=== PATIENT | female | born 1975 | race Two or more races ===

== ENCOUNTER 2018-05-04 20:35 | Emergency (ER) | payer OTHER ==
[2018-05-04] MEDS ORDERED: NS 0.9% 1000 ML* 1,000 ML IV ONE (21:11)
[2018-05-04] MEDS ORDERED: Aspirin 81 mg CHEW TAB* 81 MG TAB.CHEW PO ONE (21:21)
[2018-05-04 21:26] LABS: ABS Basophils 0.1 10^3/ul (0-0.2); ABS Eosinophils 0.1 10^3/ul (0-0.6); ABS Monocytes 0.7 10^3/ul (0-0.8); ABS Neutrophils 7.9 10^3/ul (1.5-7.7); ABS Nucleated RBC 0 10^3/ul; Eosinophil % 0.8 % (0-6); Hematocrit 42 % (35-47); Hemoglobin 14.6 g/dl (12.0-16.0); Lymphocyte % 18.9 % (25-47); Mean Corpuscular HGB Conc 35 g/dl (31-36); Mean Corpuscular Hemoglobin 32 pg (27-31); Mean Corpuscular Volume 92 fL (80-97); Mean Platelet Volume 8.1 um3 (7.4-10.4); Nucleated Red Blood Cells % 0; Platelet Count 243 10^3/ul (150-450); Red Blood Count 4.52 10^6/ul (4.00-5.40); Red Cell Distribution Width 12 % (10.5-15); White Blood Count 10.7 10^3/ul (3.5-10.8)
--- NOTE | 2018-05-04 21:30 | ED ---
Syncope/Near Syncope - HPI Summary HPI Summary: Pt is 43 y/o F [facility] sync[facility]. Pt was alone at home during syncopal episode and states that she felt heavy in her breathing and a little chest pain before it happened. She woke up on the floor and is not sure how much time she lost. When she regained consciousness she called 911 and had spasms in her legs. These spasms were consistent with spasms she experienced the one other time in her life that she fainted, which was 20 years ago. Pt has also felt tightness in her legs for several days, and it is still present now. During the day, before her syncopal episode, pt says she felt normal. She notes that now, she feels very fatigued. Denies fever, cough, or loss of urine. She is on no medications. - History Of Current Complaint Chief Complaint: EDChestPainROMI Time Seen by Provider: 05/04/18 20:49 Hx Obtained From: Patient Onset/Duration: Sudden Onset Context: Unwitnessed, Loss Of Consciousness Aggravating Factor(s): Nothing Associated Signs And Symptoms: Chest Pain, Weakness, Other - heavy breathing, leg spasms - Allergies/Home Medications Allergies/Adverse Reactions: Allergies Allergy/AdvReac Type Severity Reaction Status Date / Time No Known Allergies Allergy Verified 05/04/18 20:46 Home Medications: Home Medications NK [No Home Medications Reported] 05/04/18 [History Confirmed 05/04/18] PMH/Surg Hx/FS Hx/Imm Hx Infectious Disease History: No Infectious Disease History: Denies: Traveled Outside the [place] in Last 30 Days Review of Systems Positive: Fatigue. Negative: Fever Positive: Other - heavy breathing. Negative: Cough Positive: Other - loss of urine during episode Positive: Other - leg spasms Positive: Syncope All Other Systems Reviewed And Are Negative: Yes Physical Exam - Summary Physical Exam Summary: VITAL SIGNS: Reviewed. GENERAL: Patient is a well-developed and nourished female who is lying comfortable in the stretcher. Patient is not in any acute respiratory distress. HEAD AND FACE: No signs of trauma. No ecchymosis, hematomas or skull depressions. No sinus tenderness. EYES: PERRLA, EOMI x 2, No injected conjunctiva, no nystagmus. EARS: Hearing grossly intact. Ear canals and tympanic membranes are within normal limits. MOUTH: Oropharynx within normal limits. NECK: Supple, trachea is midline, no adenopathy, no JVD, no carotid bruit, no c- spine tenderness, neck with full ROM. CHEST: Symmetric, no tenderness at palpation LUNGS: Clear to auscultation bilaterally. No wheezing or crackles. CVS: Regular rate and rhythm, S1 and S2 present, no murmurs or gallops appreciated ABDOMEN: Soft, non-tender. No signs of distention. No rebound no guarding, and no masses palpated. Bowel sounds are normal. EXTREMITIES: FROM in all major joints, no edema, no cyanosis or clubbing. NEURO: Alert and oriented x 3. No acute neurological deficits. Speech is normal and follows commands. SKIN: Dry and warm Triage Information Reviewed: Yes Vital Signs On Initial Exam: Initial Vitals Temp Pulse Resp BP Pulse Ox 98.4 F 74 12 148/103 98 05/04/18 20:39 05/04/18 20:39 05/04/18 20:39 05/04/18 20:39 05/04/18 20:39 Vital Signs Reviewed: Yes Diagnostics - Vital Signs Vital Signs Temp Pulse Resp BP Pulse Ox 05/04/18 20:39 98.4 F 74 12 148/103 98 - Laboratory Lab Results: Lab Results 05/04/18 Range/Units 21:13 WBC 10.7 (3.5-10.8) 10^3/ul RBC 4.52 (4.00-5.40) 10^6/ul Hgb 14.6 (12.0-16.0) g/dl Hct 42 (35-47) % MCV 92 (80-97) fL MCH 32 H (27-31) pg MCHC 35 (31-36) g/dl RDW 12 (10.5-15) % Plt Count 243 (150-450) 10^3/ul MPV 8.1 (7.4-10.4) um3 Neut % (Auto) 73.6 (38-83) % Lymph % (Auto) 18.9 L (25-47) % [place]kin % (Auto) 6.1 (0-7) % Eos % (Auto) 0.8 (0-6) % Baso % (Auto) 0.6 (0-2) % Absolute Neuts (auto) 7.9 H (1.5-7.7) 10^3/ul Absolute Lymphs (auto) 2.0 (1.0-4.8) 10^3/ul Absolute Monos (auto) 0.7 (0-0.8) 10^3/ul Absolute Eos (auto) 0.1 (0-0.6) 10^3/ul Absolute Basos (auto) 0.1 (0-0.2) 10^3/ul Absolute Nucleated RBC 0 10^3/ul Nucleated RBC % 0 Result Diagrams: 05/04/18 21:13 05/04/18 21:13 Lab Statement: Any lab studies that have been ordered have been reviewed, and results considered in the medical decision making process. - EKG 21:14 Cardiac Rate: NL - 63 bpm EKG Rhythm: Sinus Rhythm EKG Interpretation: Non-specific T wave change Course/Dx Course Of Treatment: Pt is 43 y/o F BIBA to [facility] s/p syncope. Pt was alone at home during syncopal episode and states that she felt heavy in her breathing and a little chest pain before it happened. She woke up on the floor and is not sure how much time she lost. When she regained consciousness she called 911 and had spasms in her legs. Denies fever, cough, or loss of urine. In the ED course pt was given fluids and aspirin. Pt has been asymptomatic in ER. Syncopal episode might be vasovagal episode. Pt is diagnosed with syncope and discharged home. She is told to follow up with veterinary nurse and is agreeable with this plan. - Diagnoses Provider Diagnoses: Syncope Discharge - Sign-Out/Discharge Documenting (check all that apply): Patient Departure - Discharge - Discharge Plan Condition: Stable Disposition: HOME Patient Education Materials: Syncope (ED) Referrals: Jose Carrillo MD [Medical Doctor] - Additional Instructions: Follow up with veterinary nurse. RETURN TO THE EMERGENCY DEPARTMENT FOR CHANGING OR WORSENING SYMPTOMS. FOLLOW UP WITH PCP IN 1-2 DAYS. - Attestation Statements Document Initiated by Scribe: Yes Documenting Scribe: Isaac Duckworth Provider For Whom Scribe is Documenting (Include Credential): Dr. Mark Haji MD Scribe Attestation: Isaac Rees, jose for Dr. Mark Haji MD on 05/05/18 at 0157.
[2018-05-04 21:41] LABS: EGFR Non-African American 90.9 (>60)
[2018-05-04 21:43] LABS: INR 0.84 (0.77-1.02)
[2018-05-04 23:06] LABS: Urine Appearance Clear; Urine Blood 3+ (Negative); Urine Color Straw; Urine Ketones Negative (Negative); Urine Protein Negative (Negative); Urine Red Blood Cell Trace(0-2/hpf) (Absent); Urine Specific Gravity 1.005 (1.010-1.030); Urine Urobilinogen Negative (Negative); Urine White Blood Cell Trace(0-5/hpf) (Absent)
[2018-05-05 01:45] VITALS: BP 138/74
== END 2018-05-05 01:44 | disposition home or self-care (01) ==
LOC: ED 20:35
DX: R55 Syncope and collapse (principal); R07.9 Chest pain, unspecified; R53.1 Weakness; R53.83 Other fatigue; M62.838 Other muscle spasm
CPT/HCPCS: 36415; 80053; 81003; 81015; 82550; 83735; 84443; 84484; 84702; 85025; 85610; 85730; 87086; 93005; 99283; A9270-GY

== ENCOUNTER → 2018-05-17 11:15 | Emergency (ER) | payer SELFPAY ==
--- OUTSIDE RECORDS SUMMARY | 2018-05-17 11:40 | XMS REPORT ---
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 ETOH Use Currently consumes alcohol Smoking Light tobacco smoker (10 or fewer cigarettes/day) Daily Caffeine Consumes on average 3 cups of coffee per day Allergies, Adverse Reactions, Alerts Date Description Reaction Status Severity Comments 05/09/2018 NKDA active Medications Medication Date Status Form Strength Qnty SIG Indications Ordering Provider No Active 05/09/2018 Active Unknown Medications Vital Signs Date Vital Result Comment 05/09/2018 BP Systolic 98 mmHg BP Diastolic 60 mmHg Heart Rate 84 /min Body Temperature 97.9 F Respiratory Rate 16 /min Height 63.5 inches 5'3.50" Weight 153.00 lb BMI (Body Mass Index) 26.7 kg/m2 Results Description No Information Procedures Description No Information Plan of Care 05/09/2018 - Luis Fernando Barahona, [id number] Syncope and collapseAllNew Medication: No Active MedicationsComments:~B_~U_Medication Management~b_~u_ Patient Understands medications she's taking? Yes No Are there Barriers to Adherence? Yes No Has the patient been asked about herbal supplements and therapies, and OTC meds? Yes No
--- NOTE | 2018-05-17 12:03 | ED ---
HPI Chest Pain - HPI Summary HPI Summary: The pt is a 43 y/o female presenting to [facility] c/o L chest pain since yesterday afternoon. She is unsure if the pain is in the breast or chest. The pain rated 4 /10 is aggravated by deep breaths and palpation and radiates to the back and L shoulder. The pt notes R sided abd pain, numbness, dizziness and a recent syncope episode, but denies fever, N/V/D and chills. She was recently referred to a blasting helper but has not gotten a follow up appointment. She denies any use of contraceptives.[facility] 05/01/2018 - History of Current Complaint Chief Complaint: EDChestPainROMI Time Seen by Provider: 05/17/18 11:37 Hx Obtained From: Patient Onset/Duration: Started Days Ago - 1 day, Still Present Timing: Constant Current Severity: Moderate Pain Intensity: 4 Pain Scale Used: 0-10 Numeric Chest Pain Location: Discrete at: - L chest Chest Pain Radiates: Yes Chest Pain Radiates To:: Back, Shoulder - L Aggravating Factor(s): Deep Breaths, Other: - Palpation Alleviating Factor(s): Nothing Associated Signs and Symptoms: Positive: Chest Pain, Back Pain, Abdominal Pain. Negative: Fever, Chills, Nausea, Vomiting - Allergy/Home Medications Allergies/Adverse Reactions: Allergies Allergy/AdvReac Type Severity Reaction Status Date / Time No Known Allergies Allergy Verified 05/17/18 11:26 PMH/Surg Hx/FS Hx/Imm Hx Previously Healthy: No Endocrine/Hematology History: Denies: Hx Diabetes Cardiovascular History: Denies: Hx Embolism, Hx Hypertension Neurological History: Reports: Other Neuro Impairments/Disorders - Syncope - Cancer History Cancer Type, Location and Year: None reported Infectious Disease History: No Infectious Disease History: Denies: Traveled Outside the [place] in Last 30 Days - Family History Known Family History: Positive: Diabetes - Mother , Other - Bladder CA - Social History Occupation: Employed Full-time Lives: With Family Alcohol Use: Rare Substance Use Type: Reports: None Smoking Status (MU): Former Smoker Review of Systems Constitutional: Other - Positive: Dizziness Negative: Fever, Chills Positive: Chest Pain Positive: Abdominal Pain. 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 Patient is not in any acute respiratory distress. HEAD AND FACE: Normocephalic EYES: PERRLA, EOMI x 2. EARS: Hearing grossly intact. MOUTH: Oropharynx within normal limits. NECK: Supple, trachea is midline, no adenopathy, no JVD, no carotid bruit. CHEST: Symmetric, no tenderness at palpation LUNGS: Clear to auscultation bilaterally. No wheezing or crackles. CVS: Regular rate and rhythm, S1 and S2 present, no murmurs or gallops appreciated. ABDOMEN: Soft, non-tender. Bowel sounds are normal. No abdominal abnormal pulsations. EXTREMITIES: Full ROM in all major joints, no edema, no cyanosis or clubbing. NEURO: Alert and oriented x 3. No acute neurological deficits. Speech is normal and follows commands. SKIN: Dry and warm Triage Information Reviewed: Yes Vital Signs On Initial Exam: Initial Vitals Temp Pulse Resp BP Pulse Ox 97.7 F 84 16 124/77 99 05/17/18 11:22 05/17/18 11:22 05/17/18 11:22 05/17/18 11:22 05/17/18 11:22 Vital Signs Reviewed: Yes Diagnostics - Vital Signs Vital Signs Temp Pulse Resp BP Pulse Ox 05/17/18 11:22 97.7 F 84 16 124/77 99 - Laboratory Result Diagrams: 05/17/18 12:00 05/17/18 12:00 Lab Statement: Any lab studies that have been ordered have been reviewed, and results considered in the medical decision making process. - Radiology CXR Radiology Interpretation Completed By: Radiologist - IMPRESSION: No active cardiopulmonary disease The ED physician reviewed this radiology report. - EKG 11:37 Cardiac Rate: NL - 69 bpm EKG Rhythm: Sinus Rhythm ST Segment: Normal Ectopy: None EKG Comparison: No Significant Change Chest Pain Course/Dx - Course Assessment/Plan: A 43 year-old F presents to the ED with a CC of L chest pain since yesterday afternoon. She is unsure if the pain is in the breast or chest. The pain rated 4/10 is aggravated by deep breaths and palpation and radiates to the back and L shoulder. The pt notes abd pain, numbness, dizziness and a recent syncope episode, but denies fever, N/V/D and chills. A physical exam is unremarkable. A CXR is unremarkable. Patient is low risk for ACS base on HEART score. Patient will be discharged with a final Dx of chest pain. I discussed results with patient and she agrees with this plan. She is hemodynamically stable upon discharge. Strict return precautions given and she will otherwise follow up with her PCP. Allergies noted. - Diagnoses Provider Diagnoses: Chest pain Discharge - Sign-Out/Discharge Documenting (check all that apply): Patient Departure - DC - Discharge Plan Condition: Improved Disposition: HOME Patient Education Materials: Chest Pain (ED) Referrals: Care [facility] [Outside] Additional Instructions: Follow up with PCP in 1- 3 days. Return to ED for any new or worsening symptoms - Billing Disposition and Condition Condition: IMPROVED Disposition: Home - Attestation Statements Document Initiated by Scribe: Yes Documenting Scribe: Liz Angeles Provider For Whom Scribe is Documenting (Include Credential): Dr. Laura Jimenez MD Scribe Attestation: Liz Rees , scribed for Dr. Laura Jimenez MD on 05/17/18 at 2056. Scribe Documentation Reviewed: Yes Provider Attestation: The documentation as recorded by the Liz ramirez accurately reflects the service I personally performed and the decisions made by me, Dr. Laura Jimenez MD
[2018-05-17 12:21] LABS: ABS Basophils 0 10^3/ul (0-0.2); ABS Eosinophils 0.1 10^3/ul (0-0.6); ABS Monocytes 0.6 10^3/ul (0-0.8); ABS Neutrophils 8.2 10^3/ul (1.5-7.7); ABS Nucleated RBC 0 10^3/ul; Eosinophil % 0.5 % (0-6); Hematocrit 38 % (35-47); Hemoglobin 13.3 g/dl (12.0-16.0); Lymphocyte % 18.5 % (25-47); Mean Corpuscular HGB Conc 35 g/dl (31-36); Mean Corpuscular Hemoglobin 32 pg (27-31); Mean Corpuscular Volume 92 fL (80-97); Mean Platelet Volume 8.2 um3 (7.4-10.4); Nucleated Red Blood Cells % 0.1; Platelet Count 199 10^3/ul (150-450); Red Blood Count 4.13 10^6/ul (4.00-5.40); Red Cell Distribution Width 12 % (10.5-15); White Blood Count 10.9 10^3/ul (3.5-10.8)
[2018-05-17 12:41] LABS: EGFR Non-African American 89.4 (>60)
--- NOTE | 2018-05-17 12:45 | RAD ---
HISTORY: CP COMPARISONS: None VIEWS: 1: frontal AP view of the chest at 12:08 PM FINDINGS: LINES AND TUBES: None. CARDIOMEDIASTINAL SILHOUETTE: The cardiomediastinal silhouette is normal for portable technique. PLEURA: The costophrenic angles are sharp. No pleural abnormalities are noted. LUNG PARENCHYMA: The lungs are clear. ABDOMEN: The upper abdomen is clear. There is no subphrenic gas. BONES AND SOFT TISSUES: No bone or soft tissue abnormalities are noted. IMPRESSION: NO ACTIVE CARDIOPULMONARY DISEASE.
[2018-05-17 14:56] VITALS: BP 106/77
== END | disposition home or self-care (01) ==
LOC: ED 11:15
DX: R07.89 Other chest pain (principal); R42 Dizziness and giddiness; R10.9 Unspecified abdominal pain; M54.9 Dorsalgia, unspecified; R20.0 Anesthesia of skin; Z87.891 Personal history of nicotine dependence
CPT/HCPCS: 36415; 71045; 80053; 83605; 83735; 83880; 84484; 84702; 85025; 85379; 85610; 85730; 93005; 99283